=== PATIENT | male | born 1995 | race Asian ===

== ENCOUNTER 2022-08-11 09:04 | Emergency (ER) | payer MEDICAID, SELFPAY ==
--- NOTE | ~2022-08-11 | XR_ITS ---
EXAMINATION: XR CHEST CLINICAL INFORMATION: Cough. COMPARISON: Chest radiographs dated 11/15/2019. TECHNIQUE: 2 views of the chest were obtained. FINDINGS: No significant abnormality is noted involving the heart, lungs, mediastinum, bony thorax or soft tissues. XR/XR chest 2V IMPRESSION: No acute cardiopulmonary process.
[2022-08-11 09:07] VITALS: BP 140/86; PULSE 80; RESP 19; TEMP 36.6; O2SAT 98; BMI 26.6
--- NOTE | 2022-08-11 09:48 | ED_ITS ---
HPI - URI/Sore Throat General Chief Complaint: Upper Respiratory Symptoms Stated Complaint: ? Bronchitis Time Seen by Provider: 08/11/22 09:30 Source: patient Mode of arrival: ambulatory Limitations: no limitations History of Present Illness HPI Narrative: 27-year-old male here with 5 days of nasal congestion, cough which is productive with some streaks of blood intermittently noted the sputum. No fevers, chills, headache, vomiting, diarrhea, difficulty breathing, chest pain, leg swelling or leg pain. No recent travel, recent trauma or surgery, sick contact. MD elicited complaint: cough and nasal congestion Related Data Previous Rx's Medication Instructions Recorded azithromycin 250 mg tablet See Rx Instructions PO .COMPLEX #6 08/11/22 tabs Allergies Allergy/AdvReac Type Severity Reaction Status Date / Time No Known Allergies Allergy Unverified 05/16/20 16:43 [No Known Allergies*] Review of Systems Review of Systems: Yes all other systems are reviewed and are negative Constitutional: Constitutional: Reports no additional constitutional complaints, Denies body ache(s), Denies chills, Denies fever(s), Denies headache(s) and Denies weakness Eyes: Eyes: Reports no additional eye complaints and Denies change in vision ENT: Reports system reviewed and no additional complaints, except as documented, Denies dizziness, Denies headache(s), Reports nasal congestion, Denies nasal discharge and Denies neck pain Cardiovascular: Cardiovascular: Reports no additional cardiovascular complaints, Denies chest pain, Denies leg edema and Denies dyspnea Respiratory: Respiratory: Reports no additional respiratory complaints, Reports cough and Denies dyspnea Gastrointestinal: Gastrointestinal: Reports no additional gastrointestinal complaints, Denies abdominal pain, Denies diarrhea, Denies nausea and Denies vomiting Genitourinary: Genitourinary: Denies urinary incontinence Musculoskeletal: Musculoskeletal: Reports no additional musculoskeletal complaints, Denies back pain, Denies arthralgias, Denies joint swelling, Denies neck pain, Denies numbness and Denies tingling Integumentary/Breasts: Skin/Breast: Reports system reviewed and no additional complaints, except as docu and Denies rash Neurologic: Reports system reviewed and no additional complaints, except as documented, Denies Abnormal speech present, Denies dizziness, Denies headache(s), Denies numbness, Denies tingling and Denies weakness [facility] Past Medical History Attestation statement: The following information was validated with the patient. Source: old records reviewed and nursing notes reviewed Social History Social History Advance Directives: No Advance Directives Information Provided: Yes Physical Exam Vital Signs: Vital Signs: Last Vital Signs Temp 98 F 08/11/22 09:07 Pulse 80 08/11/22 09:07 Resp 19 08/11/22 09:07 BP 140/86 H 08/11/22 09:07 Pulse Ox 98 08/11/22 09:07 O2 Del Method 08/11/22 09:07 BMI result Body Mass Index 26.6 Const: General: cooperative, healthy appearing, comfortable and no acute distress Orientation/consciousness: patient oriented x3 Limitations: no limitations HEENT: Head: Yes normal to inspection Ears: hearing grossly normal bilaterally and TM's normal bilaterally General nose exam: Normal external nose present Face and sinus: Yes normal facial exam Mouth: Normal oral and palatal mucosa present Throat: Yes posterior oropharynx normal, Yes tonsils normal and Yes uvula midline Eyes: General: appearance normal, both eyes and all related structures Pupils: Equal, round and reactive pupils present Neck: Neck: Yes normal visual inspection, Yes full ROM, Yes no lymphadenopathy and Yes no meningeal signs Chest: Chest palpation & inspection: normal inspection of the chest Resp: Effort & Inspection: normal respiratory effort Auscultation: clear to auscultation bilaterally Cardio: Rate: regular rate Rhythm: regular rhythm Peripheral pulses: Peripheral pulses 2+ throughout GI: Inspection: Yes normal to inspection Palpation (GI): Soft to palpation and nontender Auscultation: normal bowel sounds Back/Spine/Pelvis: Thoracic/Lumbar Spine: thoracic and lumbar spine normal to inspection Skin: General skin exam: no rashes or lesions noted Neuro: General: patient oriented x3, no meningeal signs, no focal motor deficits and normal sensation to monofilament Cranial nerves: Yes Equal, round and reactive pupils present Cognition (Neuro): normal cognition Speech: No Abnormal speech present Gait exam (Neuro): Normal gait present Motor exam (neuro): 5/5 motor strength present throughout Extrem: General: Yes normal to inspection, Yes no pedal edema and Yes no calf tenderness Course Course Course Narrative: Testing for flu, COVID, RSV are negative. Chest x-ray shows no signs of pn eumonia. Likely bronchitis. Low concern for PE. Patient be treated with antibiotics. Reviewed worrisome signs and symptoms of when to return to the emergency room. Comfortable plan for discharge home. Medical Decision Making Medical Decision Making [facility] Narrative: 27 yo male healthy here with cough and congestion for 5 days. Patient reports productive cough with some bloody streaks sputum. No tachypnea, tachycardia, clinical findings concerning for DVT, risk factors for DVT or PE. Low concern for PE. Will check flu, COVID, RSV testing, chest x-ray Differential Diagnosis Differential Diagnoses: The differential diagnosis associated with the presentation includes pe. pna, viral syndrome Lab Data [facility] Lab Attestation statement: I reviewed the patient's lab results. Labs: Lab Results 08/11/22 Range/Units 09:19 Influenza Type A (PCR) NEGATIVE (Negative) Influenza Type B (PCR) NEGATIVE (Negative) RSV RNA Qual (PCR) NEGATIVE (Negative) SARS-CoV-2 RNA (RT-PCR) NEGATIVE (Negative) Independent Interpretation I performed an independent interpretation of an: Plain X-Ray Interpretation: [place] [id number] XRay Report Signed Patient: Jake Gonzalez MR#: [id number] : 1995 Acct:[id number] Age/Sex: 27 / M ADM Date: 08/11/22 Loc: .ED Attending Dr: Ordering Physician: Mandi Guthrie NP Date of Service: 08/11/22 Procedure(s): XR chest 2V Accession Number(s): [id number] cc: Mandi Guthrie NP~ EXAMINATION: XR CHEST CLINICAL INFORMATION: Cough. COMPARISON: Chest radiographs dated 11/15/2019. TECHNIQUE: 2 views of the chest were obtained. FINDINGS: No significant abnormality is noted involving the heart, lungs, mediastinum, bony thorax or soft tissues. XR/XR chest 2V IMPRESSION: No acute cardiopulmonary process. Discharge Plan Discharge Clinical Impression: Bronchitis Patient Disposition: Home, Self-Care Instructions: Acute Bronchitis (ED) Additional Instructions: Testing for flu, COVID, RSV are negative X-ray shows no signs of an pneumonia Increase fluids, rest Take Motrin or Tylenol for pain or fever Prescriptions: New azithromycin 250 mg tablet See Rx Instructions .ROUTE .COMPLEX Qty: 6 0RF Rx Instructions: For 250 mg dose pack: take 500 mg today (day 1), then 250 mg for 4 days (days 2-5) Referrals: [facility] [Primary Care Provider] - Interventions: ED Discharge Assessment Last Done: 08/11/22 11:11 Discharge Date/Time: 08/11/22 11:12
[2022-08-11 10:18] LABS: Influenza A PCR NEGATIVE (Negative); Influenza B PCR NEGATIVE (Negative); Resp Syncy Virus RNA Qual PCR NEGATIVE (Negative); SARS COV2 PCR INHOUSE NEGATIVE (Negative)
== END 2022-08-11 11:12 | disposition home or self-care (01) ==
PROVIDERS: Emergency Provider Emergency Medicine
DX: J40 Bronchitis, not specified as acute or chronic (principal); R05.9 Cough, unspecified; Z20.822 Contact with and (suspected) exposure to COVID-19
CPT/HCPCS: 0241U; 71046; 99282; 99283

== ENCOUNTER 2023-04-19 19:50 | Emergency (ER) | payer OTHER, SELFPAY ==
--- NOTE | ~2023-04-19 | XR_ITS ---
EXAMINATION: XR CHEST CLINICAL INFORMATION: Shortness of breath. COMPARISON: Chest radiograph 08/11/2022. TECHNIQUE: 2 views of the chest were obtained. FINDINGS: No significant abnormality is noted involving the heart, lungs, mediastinum, bony thorax or soft tissues. XR/XR chest 2V IMPRESSION: Unremarkable examination.
[2023-04-19 20:04] VITALS: BP 132/72; PULSE 87; RESP 18; TEMP 37; O2SAT 97; BMI 26.8
--- NOTE | 2023-04-19 20:05 | ED.URI ---
HPI - URI/Sore Throat General Chief Complaint: Upper Respiratory Symptoms Stated Complaint: cough ? bronchitis Time Seen by Provider: 04/19/23 22:08 Source: patient Mode of arrival: ambulatory Limitations: no limitations History of Present Illness MD elicited complaint: fever and cough Onset (ago): day(s) (2) Consistency: constant Severity: moderate Description of mucous: green Able to tolerate fluids by mouth: Yes Exacerbating factors: nothing Relieving factors: nothing Context: sick contacts Associated symptoms: fever Treatments prior to arrival: none Related Data Previous Rx's Medication Instructions Recorded azithromycin 250 mg tablet See Rx Instructions PO .COMPLEX #6 08/11/22 tabs azithromycin 250 mg tablet 250 mg PO DAILY 5 days #6 tabs 04/19/23 Allergies Allergy/AdvReac Type Severity Reaction Status Date / Time No Known Allergies Allergy Verified 04/19/23 20:04 [No Known Allergies*] Review of Systems Review of Systems: CONSTITUTIONAL: Denies weight loss, fever and chills. HEENT: Denies changes in vision and hearing. RESPIRATORY: + SOB and cough. CV: Denies palpitations no CP. GI: Denies abdominal pain, nausea, vomiting and diarrhea. : Denies dysuria and urinary frequency. MSK: Denies myalgia and joint pain. SKIN: Denies rash and pruritus. NEUROLOGICAL: Denies headache and syncope. PSYCHIATRIC: Denies recent changes in mood. Denies anxiety and depression. All other ROS are negative unless in HPI [facility] Social History Social History Advance Directives: No Advance Directives Information Provided: No Physical Exam Vital Signs: Vital Signs: Last Vital Signs Temp 98.6 F 04/19/23 20:04 Pulse 87 04/19/23 20:04 Resp 18 04/19/23 20:04 BP 132/72 04/19/23 20:04 Pulse Ox 97 04/19/23 20:04 O2 Del Method Room Air 04/19/23 20:04 BMI result Body Mass Index 26.8 GEN: Well developed, no acute distress, alert, oriented HEENT: Normocephalic, atraumatic, normal external ears, nose appears normal, no oropharyngeal edema or exudates Eyes: Normal to appearance Neck: Supple, no lymphadenopathy Respiratory: Talks in complete sentences, no respiratory distress, clear to auscultation bilaterally Cardiovascular: Regular rate and rhythm, no murmurs rubs or gallops Abdomen: Soft, nontender, nondistended, no guarding, no rebound Back: No CVA tenderness Extremities: No clubbing cyanosis or edema Neurologic: No focal neurologic deficits, cranial nerves 2-12 intact, strength is 5/5 bilaterally Skin: No rash Course Course Course Narrative: This is an RME: Additional HPI, ROS, PE not included below will be deferred to primary provider. This is a 19-xucd-jyl-male, hx of bronchitis, presenting to the ER with complaints of cough, shortness of breath, subjective fevers, and sore throat x 2 days. No sick contacts. Vital signs stable. Patient afebrile. Patient is nontoxic appearing. Lungs clear auscultation bilaterally. Plan: Viral swabs, strep swab, chest x-ray Medical Decision Making Medical Decision Making MDM Narrative: Patient presents with upper respiratory symptoms. Examination was unremarkable. Will order chest x-ray to rule out pneumonia or nonspecific airway disease. Will obtain COVID and influenza serology as well. Differential diagnosis includes bronchitis, pneumonia, viral syndrome, asthma, reflux. Differential Diagnosis Differential Diagnoses: The differential diagnosis associated with the presentation includes ( See above) Lab Data [facility] Lab Attestation statement: I reviewed the patient's lab results. Labs: Lab Results 04/19/23 04/19/23 04/19/23 Range/Units 20:36 20:36 20:37 COVID-19 (SHIMA) Negative (Negative) COVID-19 Clin Com See Note Influenza Type A (SABRINA) Negative (Negative) Influenza Type B (SABRINA) Negative (Negative) Influenza A & B Note See Note S. pyogenes GrpA SABRINA Negative (Negative) Independent Interpretation I performed an independent interpretation of an: Plain X-Ray ( chest: No acute) Independent Historian Clinical information obtained from an independent historian. History obtained from or confirmed by: Friend Prescription Management I considered prescription management with: Antibiotic Discharge Plan Discharge Clinical Impression: Bronchitis Patient Disposition: Home, Self-Care Instructions: Acute Bronchitis (ED) Prescriptions: New azithromycin 250 mg tablet 250 mg PO DAILY 5 Days Qty: 6 0RF Rx Instructions: Take 2 pills day 1 then 1 tablet day 2-5 No Action azithromycin 250 mg tablet See Rx Instructions .ROUTE .COMPLEX Qty: 6 0RF Rx Instructions: For 250 mg dose pack: take 500 mg today (day 1), then 250 mg for 4 days (days 2-5) Referrals: Physician,Unknown J [Primary Care Provider] - (PMD in 3-5 days if needed)
[2023-04-19 21:04] LABS: COVID-19 Test Negative (Negative); IDNOW Serial# BCCEAD1C
[2023-04-19 21:04] LABS: IDNOW Serial# 08D9AD1C; IDNOW Serial# 9DB6401D; Influenza A Negative (Negative); Influenza B2 Negative (Negative); Strep A Nucleic Acid Negative (Negative)
== END 2023-04-19 22:36 | disposition home or self-care (01) ==
PROVIDERS: Physician Assistant Medical; Emergency Provider Emergency Medicine
DX: R05.9 Cough, unspecified (principal); Z20.822 Contact with and (suspected) exposure to COVID-19; Z20.828 Contact with and (suspected) exposure to other viral communicable diseases; Z79.899 Other long term (current) drug therapy
CPT/HCPCS: 71046; 87502; 87635; 87651; 99282; 99283

== ENCOUNTER 2025-06-26 15:31 | Emergency (ER) | payer OTHER, SELFPAY ==
--- NOTE | ~2025-06-26 | CT_ITS ---
EXAMINATION: CT HEAD WITHOUT CONTRAST CLINICAL INFORMATION: Fell from roof, greater than 8ft COMPARISON: None available. TECHNIQUE: Contiguous axial imaging was performed from the skull base to vertex without intravenous administration of contrast. This CT examination was performed using dose optimization techniques as appropriate, variously including the following: *Automated exposure control *Adjustment of mA and/or kV according to patient size (this includes techniques or standardized protocols for targeted exams where dose is matched to indication/reason for exam; i.e. extremities or head) *Use of iterative reconstruction technique FINDINGS: There is no acute ischemic change. There is no intracranial hemorrhage. There is no mass-effect or midline shift. Basal cisterns and ventricles are within normal limits for age/cerebral volume. Orbits are symmetrical and unremarkable. There is mild mucosal thickening in the ethmoid air cells and floor the right maxillary sinus. There are no bony abnormalities. CT/CT head/brain wo IV con IMPRESSION: No acute intracranial abnormality. Mild chronic mucosal changes in the ethmoid air cells and right maxillary sinus. Electronically signed by: Spencer Watson MD 06/26/2025 04:25 PM EDT
--- NOTE | ~2025-06-26 | CT_ITS ---
EXAMINATION: CT CHEST WITH CONTRAST CLINICAL INFORMATION: Fell from ladder, greater than 8ft COMPARISON: None available. TECHNIQUE: Multidetector volumetric CT imaging of the chest was obtained after the administration of 85 mL of Omnipaque 350 intravenous contrast without immediate adverse reactions. Axial MIP volume rendering provided. Sagittal and coronal reformatted images were obtained. This CT examination was performed using dose optimization techniques as appropriate, variously including the following: *Automated exposure control *Adjustment of mA and/or kV according to patient size (this includes techniques or standardized protocols for targeted exams where dose is matched to indication/reason for exam; i.e. extremities or head) *Use of iterative reconstruction technique FINDINGS: LUNGS: There is minimal dependent atelectasis. Lungs clear otherwise. There is no sign of pulmonary contusion or pneumothorax. MEDIASTINUM: Residual thymic tissue is demonstrated. Exam is otherwise unremarkable. PLEURA: There is no pleural effusion. No pleural mass or thickening. AXILLA: No lymphadenopathy. OSSEOUS STRUCTURES: Unremarkable. CT/CT chest w IV con IMPRESSION: Unremarkable examination, no acute abnormality. Fleischner guidelines were followed. Electronically signed by: Spencer Watson MD 06/26/2025 04:31 PM EDT
--- NOTE | ~2025-06-26 | CT_ITS ---
EXAMINATION: CT CERVICAL SPINE WITHOUT CONTRAST CLINICAL INFORMATION: Fell from roof, greater than 8ft COMPARISON: None available. TECHNIQUE: Axial imaging was performed from the base of the skull through T2 without IV contrast. Coronal and sagittal reformatted images were generated from the original axial data set. ALARA: The examination used one or more of the following radiation dose reduction techniques: Automated exposure control, iterative reconstruction, and/or adjustment of mA and/or KV. FINDINGS: There is an accessory ossification center cephalad to the left transverse process of T1. Vertebral body height and alignment is preserved. There is no prevertebral soft tissue edema. No fracture line is evident. CT/CT cervical spine wo IV con IMPRESSION: No acute bony abnormality. Electronically signed by: Spencer Watson MD 06/26/2025 04:22 PM EDT
--- NOTE | ~2025-06-26 | CT_ITS ---
EXAMINATION: CT ABDOMEN AND PELVIS WITH CONTRAST CLINICAL INFORMATION: Fell from ladder/roof, at least 8ft COMPARISON: None available. TECHNIQUE: Multidetector volumetric images were obtained from the superior aspect of the liver through the pubic symphysis following administration 85 mL of Omnipaque 350 intravenous contrast. Sagittal and coronal reformatted images were obtained on the technologist's workstation. Oral contrast: No This CT examination was performed using dose optimization techniques as appropriate, variously including the following: *Automated exposure control *Adjustment of mA and/or kV according to patient size (this includes techniques or standardized protocols for targeted exams where dose is matched to indication/reason for exam; i.e. extremities or head) *Use of iterative reconstruction technique FINDINGS: LIVER, GALLBLADDER, AND BILIARY TREE: The liver is normal in size, shape, and attenuation. No focal hepatic lesion or biliary ductal dilatation is present. The gallbladder is unremarkable with no evidence of radiopaque gallstones, gallbladder wall thickening, or obvious pericholecystic inflammatory changes. PANCREAS: Unremarkable. SPLEEN: Unremarkable. ADRENAL GLANDS: Unremarkable. KIDNEYS AND URETERS: The kidneys are normal in size, shape, and attenuation. No hydronephrosis, hydroureter, or calculi seen. No perinephric stranding. BLADDER: Unremarkable. GASTROINTESTINAL TRACT: The small and large bowel are unremarkable aside from minimal diverticulosis in the sigmoid colon. The appendix is unremarkable. ABDOMINAL WALL: No significant hernia is appreciated. LYMPH NODES: Normal. VASCULAR: Unremarkable. PELVIC VISCERA: Unremarkable. OSSEOUS STRUCTURES: There are a few benign minimally limits. No acute abnormality is evident. CT/CT abdomen pelvis w IV con IMPRESSION: No acute abnormality. Fleischner guidelines were followed. Electronically signed by: Spencer Watson MD 06/26/2025 04:36 PM EDT
[2025-06-26 15:36] VITALS: BP 109/63; PULSE 71; RESP 18; TEMP 36.7; O2SAT 98; BMI 26.7
--- NOTE | 2025-06-26 15:49 | ED.GENADULT ---
HPI - General Adult General Chief complaint: Fall Stated complaint: Fall T-1 Time Seen by Provider: 06/26/25 15:52 Source: patient Mode of arrival: ambulatory Limitations: no limitations History of Present Illness ED Provider: Jin Perez HPI narrative: 30 yold male presents to the ED for posterior neck pain after falling off the roof/ladder 8 feet tall yesterday. Patient states he loss consciousness. Related Data Previous Rx's ?Medication ?Instructions ?Recorded azithromycin 250 mg tablet See Rx Instructions PO .COMPLEX #6 08/11/22 tabs azithromycin 250 mg tablet 250 mg PO DAILY 5 days #6 tabs 04/19/23 naproxen 500 mg tablet 500 mg PO BID PRN pain #14 tabs 06/26/25 Allergies Allergy/AdvReac Type Severity Reaction Status Date / Time No Known Allergies (No Known Allergy Verified 06/26/25 15:41 Allergies*) Review of Systems Review of Systems: posterior neck pain Yes all other systems are reviewed and are negative [facility] Social History Social History Advance Directives: No Advance Directives Information Provided: No Do you have a plan to hurt others: No Plan Physical Exam ED Vital Signs: Vital Signs - 24 hr 06/26/25 18:48 Temperature 0 F L Pulse Rate 0 L Respiratory Rate 0 L Blood Pressure 00/00 L BMI result Body Mass Index 26.7 Const General: cooperative, healthy appearing, comfortable, no acute distress, well developed, alert, awake and Physically active Orientation/consciousness: patient oriented x3 HENMT Head: Yes normal to inspection, Yes No palpable skull fracture present, Yes normocephalic and Yes atraumatic Eyes General: appearance normal, both eyes and all related structures Neck Neck: Yes normal visual inspection, Yes full ROM, Yes no lymphadenopathy, Yes no meningeal signs, Yes trachea midline, Yes supple, No anterior neck swelling, No lymphadenopathy and Yes tender (posterior neck pain) Chest Chest palpation & inspection: normal inspection of the chest and normal palpation of entire chest wall Resp Effort & Inspection: normal respiratory effort and able to speak in complete sentences Auscultation: clear to auscultation bilaterally Cardio Jugular venous distension: no JVD Heart sounds: S1 normal heart sound present and S2 normal heart sound present GI Inspection: Yes normal to inspection Palpation (GI): Soft to palpation, not firm, nontender, no guarding and not rigid General: Yes no CVA tenderness Back/Spine/Pelvis Back: no CVA tenderness and No back tenderness Skin General skin exam: no rashes or lesions noted, elasticity normal and turgor normal Neuro General: patient oriented x3, gait normal, tone normal, moves all extremities, Normal light touch and pain sensation, no meningeal signs, no focal motor deficits, CN's II-XI intact bilaterally and normal sensation to monofilament Extrem General: Yes normal to inspection, Yes full ROM and Yes capillary refill normal Psych Appearance: grossly normal, well kempt and not disheveled Course Course Course Narrative: RME: 30-year-old male presents to ED for evaluation and for falling off the roof on a ladder 8 ft tall. Patient states he fell body hit the ground also head and neck. Patient admits to loss of consciousness. Patient is presently complaining mostly of posterior neck pain. Patient is brought back to the ED for trauma scan. Medications Administered Discontinued Medications Generic Name Dose Route Start Last Admin Trade Name Freq PRN Reason Stop Dose Admin Iohexol 100 ml 06/26/25 16:03 06/26/25 16:03 Iohexol 350 Mg/Ml 100 Ml Infus..Btl IV 06/26/25 16:04 85 ml ONCE ONE Administration Ketorolac Tromethamine 30 mg 06/26/25 17:22 06/26/25 17:36 Ketorolac Tromethamine 30 Mg/Ml Vial IVPUSH 06/26/25 17:23 Not Given ONCE ONE Medical Decision Making Medical Decision Making [facility] Narrative: 30-year-old male presents to ED for falling off the roof for lateral 8 ft tall yesterday coming to the ED today for neck pain. Images all came back normal negative for life-threatening etiology. Patient explained worrisome signs with informed return to the ED immediately. Differential Diagnosis Differential Diagnoses: The differential diagnosis associated with the presentation includes (brain bleed, neck fractures, sternum fracture, internal bleding) Admission/Observation Consideration of admission/observation: Escalation of care including admission/observation considered Independent Interpretation I performed an independent interpretation of an: CT Scan Radiology Impression Discussion of test interpretation with radiology: I have reviewed the radiologist's reading. Independent Historian Clinical information obtained from an independent historian. History obtained from or confirmed by: Other (patient) Discharge Plan Discharge Clinical Impression: Neck pain, Head injury Patient Disposition: Home, Self-Care Instructions: Head Injury (ED), Acute Neck Pain (ED) Additional Instructions: Recommend follow up with the primary care provider. You images came back reassuring. Return to the ED for any nausea, vomiting, headache, dizziness, chest pain, shortness of breath, abdominal pain, blood in stool, bloody urine, or any other concerning symptoms. Prescriptions: New naproxen 500 mg tablet 500 mg PO BID PRN (Reason: pain) Qty: 14 0RF No Action azithromycin 250 mg tablet See Rx Instructions .ROUTE .COMPLEX Qty: 6 0RF Rx Instructions: For 250 mg dose pack: take 500 mg today (day 1), then 250 mg for 4 days (days 2-5) azithromycin 250 mg tablet 250 mg PO DAILY 5 Days Qty: 6 0RF Rx Instructions: Take 2 pills day 1 then 1 tablet day 2-5 Stand Alone Forms: Work/School Release Interventions: ED Discharge Assessment Last Done: 06/26/25 18:48 Discharge Date/Time: 06/26/25 18:48 Print Language: Jordanian
[2025-06-26] MEDS: iohexoL 350 MG/ML 100 ML INFUS..BTL IV (16:03)
[2025-06-26 18:48] VITALS: BP 00/00; PULSE 0; RESP 0; TEMP -17.7; TEMP 0
--- OUTSIDE RECORDS SUMMARY | 2025-06-26 20:11 | XMS_ITS ---
Author Name [facility] Organization Unknown Care Team Organization Name Specialty Phone Email Start Date End Da krzysztof [facility] 01/04/2023 04/17/2024
--- OUTSIDE RECORDS SUMMARY | 2025-06-26 20:11 | XMS_ITS | Clinical Summary ---
Author Organization [facility] ity Address [address] [place] [address] Care Team Providers Care Lab Support Technician Name Role Phone Alexx Holliday MD Primary Care Provider Social History Tobacco Use Types Packs/Day Years Used Date Smoking Tobacco: Never Assessed Sex and Gender Information Value Date Recorded Sex Assigned at Not on file Legal Sex Male 1:27 AM EST Gender Identity Not on file Sexual Orientation Not on file Obstetrics History Plan of Treatment Health Maintenance Due Date Last Done Comments DTaP,Tdap,and Td Vaccines (1 - Tdap) 2015 Hepatitis B Vaccines (1 of 3 - 19+ 3-dose series) 2015 HPV Vaccines (1 - 3-dose SCD M series) 2023 HIV Screening 03/21/2024 Hepatitis C Screening 03/21/2024 Social Influencers of Health Screening 03/21/2024 Depression Screening 08/30/2024 COVID-19 Vaccine (1 - 2023-2 5 season) 2025 Influenza Vaccine (#1) 2025 RSV Immunization Adult Patie nts (1 - 1-dose 75+ series) 2071 HIB Vaccines Aged Out No longer eligi ble based on patient's age to complete this topic Hepatitis A Vaccines Aged Out No long er eligible based on patient's age to complete this topic IPV Vaccines Aged Out No longer eligi ble based on patient's age to complete this topic MMR Vaccines Aged Out No longer eligi ble based on patient's age to complete this topic Meningococcal ACWY Vaccine Aged Out N o longer eligible based on patient's age to complete this topic Meningococcal B Vaccine Aged Out No l onger eligible based on patient's age to complete this topic Pneumococcal Vaccine: Pediat rics (0 to 5 Years) and At-Risk Patients (6 to 49 Years) Aged Out No longer eligible b ased on patient's age to complete this topic RSV Immunization Patients Un jessica 20 months Aged Out No longer eligible b ased on patient's age to complete this topic Varicella Vaccines Aged Out No longer eligible based on patient's age to complete this topic Care Teams Lab Support Technician Relationship Specialty Start Date End Date Alexx Holliday MD [address] [place] [address] PCP - General 09/02/23
--- OUTSIDE RECORDS SUMMARY | 2025-06-26 20:11 | XMS_ITS | Clinical Summary ---
Author Organization [employer] Address [address] [place] [address] [address] [place] [address] Care Team Providers Care Office Coordinator Receptionist Name Role Phone Unavailable Primary Care Provider Unavailabl e Social History Tobacco Use Types Packs/Day Years Used Date Smoking Tobacco: Never Assessed Sex and Gender Information Value Date Recorded Sex Assigned at Male 06/29/2022 10:15 AM EDT Legal Sex Male 10:15 AM EDT Gender Identity Male 06/29/2022 10:15 AM EDT Sexual Orientation Choose not to disclose 2021 10:15 AM EDT Last Filed Vital Signs Vital Sign Reading Time Taken Comments Blood Pressure 120/80 11/14/2019 12:03 AM EDT Pulse 98 11/14/2019 12:03 AM EDT Temperature - - Respiratory Rate - - Oxygen Saturation - - Inhaled Oxygen Concentration - - Weight 80.2 kg (176 lb 12.8 oz) 020 12:01 AM EST Height 170.2 cm (5' 7 ) 09/27/2019 12:0 1 AM EST Body Mass Index 27.69 09/27/2019 12:01 AM EST Plan of Treatment Health Maintenance Due Date Last Done Comments Depression Screening 1996 Disability Screening 1996 Alcohol/Substance Use Screening 2008 Tobacco Screening 2008 Family Planning (PISQ) 2011 HPV Vaccines (1 - Male 3-dose series) 2011 COVID-19 Vaccine (1 - season) 2025 Influenza Vaccine (#1) 2025 05/09/2012, 2010 DTaP/Tdap/Td Vaccines (8 - Td or Tdap) 09/27/2029 09/27/2019, 09/08/2013, 03/27/2009, Additional history exists Zoster Vaccines (1 of 2) 2046 RSV Patients and Patients Aged 60 years or older (1 - 1-dose 75+ series) 2071 HIB Vaccines Completed 08/30/1997 Hepatitis B Vaccines Completed 08/20/1999, 01/22/1999, 04/30/1998 IPV Vaccines Completed 01/12/2001, 08/1997, 1996, Additional history exists Meningococcal Vaccine Aged Out 03/27/2009 No eusebia leobardo eligible based on patient's age to complete this topic Hepatitis A Vaccines Completed 05/09/2012, 05/06/20 11 Meningococcal B Vaccine Aged Out No l onger eligible based on patient's age to complete this topic Pneumococcal Vaccine: Pediatrics (0 to 5 Years) and At-Risk Patients (6 to 49) Years Aged Out No longer eligible based on patient's age to complete this topic RSV under 20 months Aged Out No longe r eligible based on patient's age to complete this topic Rotavirus Vaccines Aged Out No longer eligible based on patient's age to complete this topic
== END 2025-06-26 18:48 | disposition home or self-care (01) ==
PROVIDERS: Emergency Provider Emergency Medicine
DX: S19.9XXA Unspecified injury of neck, initial encounter (principal); S09.90XA Unspecified injury of head, initial encounter; R55 Syncope and collapse; R51.9 Headache, unspecified; M54.2 Cervicalgia; R07.89 Other chest pain; R10.20 Pelvic and perineal pain unspecified side; W17.89XA Other fall from one level to another, initial encounter; Z91.81 History of falling; Y93.9 Activity, unspecified; Y92.9 Unspecified place or not applicable; Y99.8 Other external cause status; Z79.899 Other long term (current) drug therapy
CPT/HCPCS: 70450; 71260; 72125; 74177; 99284; 99285; Q9967

== ENCOUNTER → 2025-06-26 15:40 | Outpatient (BNV) | payer OTHER, SELFPAY | PROVIDERS: Emergency Provider Emergency Medicine; Visit Provider Radiology Diagnostic Radiology | DX: S09.90XA Unspecified injury of head, initial encounter (principal); W13.2XXA Fall from, out of or through roof, initial encounter | CPT/HCPCS: 70450; 71260; 72125; 74177 ==